=== PATIENT | male | born 1970 | race Caucasian/White ===

== ENCOUNTER 2019-10-07 08:49 | Emergency (ER) | payer OTHER ==
[2019-10-07 08:54] VITALS: BP 121/73
[2019-10-07] MEDS ORDERED: HYDROcodone/ACETAMINOPHEN 5-325 MG TAB PO ONE (10:23)
--- NOTE | 2019-10-07 10:39 | Emergency Department Report ---
Upper Extremity - HPI Chief Complaint: Extremity Injury, Upper Stated Complaint: LT ARM PAIN/COUGHING Time Seen by Provider: 10/07/19 10:11 Upper Extremity: Left Shoulder Occurred When: 3 Days Mechanism: Unsure Severity: moderate Symptoms: Yes Pain with Movement, Yes Limited Range of Movement, No Deformity, No Numbness, No Weakness, No Swelling, No Bruising/Ecchymosis, No Laceration or Abrasion Other History: Is a pleasant 49-year-old male presents the emergency department with a chief complaint of left shoulder pain 3 days. 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 He has been diagnosed with a mass in his lungs which is currently being worked up outpatient and was scheduled for bronchoscopy. He reports the pain in his left shoulder as a 10 out of 10 and rated with any movement. He specifically cannot lift it above 90 without severe pain. The pain radiates from the shoulder to his upper back. He denies any associated chest pain, shortness of breath, nausea, vomiting, diarrhea, fever, chills, night sweats or any other associated symptoms. His current medications include Atrovent, Tessalon Perles Lipitor. He denies any allergies to medications. No previous surgeries. ED Review of Systems ROS: Stated complaint: LT ARM PAIN/COUGHING Other details as noted in HPI Comment: All other systems reviewed and negative Constitutional: denies: chills, fever Eyes: denies: eye pain, eye discharge, vision change ENT: denies: ear pain, throat pain Respiratory: denies: cough, shortness of breath, wheezing Cardiovascular: denies: chest pain, palpitations Endocrine: no symptoms reported Gastrointestinal: denies: abdominal pain, nausea, diarrhea Genitourinary: denies: urgency, dysuria Musculoskeletal: as per HPI, arthralgia. denies: back pain, joint swelling Skin: denies: rash, lesions Neurological: denies: headache, weakness, paresthesias Psychiatric: denies: anxiety, depression Hematological/Lymphatic: denies: easy bleeding, easy bruising ED Past Medical Hx - Past Medical History Previous Medical History?: No - Surgical History Past Surgical History?: Yes Additional Surgical History: eye surgery - Social History Smoking Status: Former Smoker - Medications Home Medications: Home Medications Medication Instructions Recorded Confirmed Last Taken Type Codeine Phosphate/Guaifenesin 10 ml PO Q4HR PRN #90 ml 10/07/19 Unknown Rx [Guaifen-Codeine 200-20 mg/10Ml] methylPREDNISolone [Medrol 4MG 4 mg PO ONCE #1 tab.ds.pk 10/07/19 Unknown Rx DOSEPAK (21 tabs)] Upper Extremity Exam - Exam General: Vital signs noted. No distress. Alert and acting appropriately. Head and Torso: No HEENT Abnormality, No Neck Tenderness, No Chest/Lungs Abnormality, No Abdominal Tenderness, No Back Tenderness Shoulder Exam: Yes Shoulder Tenderness (there is tenderness over the head of the femur. There is pain with any range of motion above 30. There is pain with Hockin sign. Patient was unable to do Apley's maneuver secondary to pain. There is normal distal sensation and capillary refill. Normal radial pulses. Pain with neers test), No Clavicle Tenderness, No Normal Range of Motion in Shoulder, No Shoulder Deformity, No AC Joint Tenderness Arm Exam: No Arm/Humerus Tenderness, No Arm Deformity Elbow: No Elbow Tenderness, No Normal Range of Motion in Elbow, No Elbow Deformity Forearm: No Forearm Tenderness, No Forearm Deformity, No Pain with Pronation, No Pain with Supination Wrist: Yes Normal ROM in Wrist, No Wrist Tenderness, No Wrist Deformity, No Snuffbox Tenderness, No Pain with Axial Thumb Compression Hand: Yes Normal ROM in Digit(s), No Hand Tenderness, No Hand Deformity, No Digit Tenderness, No Digit(s) Deformity, No Tendon Dysfunction CMS Exam: No Broken Skin, No Normal Distal Pulses, No Normal Capillary Refill, No Normal Distal Sensation ED Course Vital Signs 10/07/19 08:53 Temperature 98.4 F Pulse Rate 95 H Respiratory 16 Rate Blood Pressure 121/73 O2 Sat by Pulse 94 Oximetry ED Medical Decision Making - Radiology Data Radiology results: report reviewed, image reviewed XRay Report Signed Patient: CHRISTIANO WILKINSON MR#: [id number] : 1970 Acct:[id number] Age/Sex: 49 / M ADM Date: 10/07/19 Loc: ED Attending Dr: Ordering Physician: DERRELL MCCLURE Date of Service: 10/07/19 Procedure(s): XR shoulder 2+V LT Accession Number(s): [id number] cc: DERRELL MCCLURE Fluoro Time In Minutes: Left shoulder-3 views INDICATION: Generalized left shoulder pain since Friday. COMPARISON: None. IMPRESSION: No acute osseous or soft tissue abnormality. No significant DJD. Signer Name: Gabriele Cope MD Signed: 10/07/2019 11:30 AM Workstation Name: [id number] XRay Report Signed Patient: CHRISTIANO WILKINSON MR#: [id number] : 1970 Acct:[id number] Age/Sex: 49 / M ADM Date: 10/07/19 Loc: ED Attending Dr: Ordering Physician: DERRELL MCCLURE Date of Service: 10/07/19 Procedure(s): XR chest routine 2V Accession Number(s): [id number] cc: DERRELL MCCLURE Fluoro Time In Minutes: CHEST 2 VIEWS INDICATION: pain. Here to evaluate reported chest mass COMPARISON: None FINDINGS: Support devices: None. Heart: Within normal limits. Lungs/pleura: There is a large rounded masslike opacity in the region of the right middle lobe with otherwise clear lungs. No pneumothorax. Additional findings: None. IMPRESSION: 1. Pulmonary findings as above. Recommend follow-up CT chest with contrast. Signer Name: Gabriele Cope MD Signed: 10/07/2019 11:31 AM Workstation Name: [id number] - Medical Decision Making X-ray of the left shoulder was unremarkable. Patient's exam was consistent with impingement syndrome versus rotator cuff arthropathy. The chest x-ray showed a large right-sided mass in the right lung which was known to the patient already. Patient was already being worked up for this with bronchoscopy and PET scan on Friday. He darty had a CT scan of the chest. I offered to do another CAT scan today to the radiologist's recommendation however patient and family declined and preferred to follow up with their doctor. They understood that I could not rule out other emergent processes such as pulmonary embolism without a CAT scan although my suspicion is relatively low with no tachycardia or persistent hypoxia. Patient was given cough medication which will also help his pain and a Medrol pack for inflammation. Recommend orthopedic follow-up. He was instructed to return to the emergency Department immediately if he develops any changing or worsening symptoms. He verbalizes understanding of these instructions and QUESTIONS were answered. - Differential Diagnosis rotator cuff arthropathy, malignancy, fracture, strain Critical care attestation.: If time is entered above; I have spent that time in minutes in the direct care of this critically ill patient, excluding procedure time. ED Disposition Clinical Impression: Rotator cuff impingement syndrome of left shoulder, Lung mass Disposition: TO HOME OR SELFCARE Is pt being admited?: No Condition: Stable Instructions: Rotator Cuff Injury (ED) Prescriptions: Codeine Phosphate/Guaifenesin [Guaifen-Codeine 200-20 mg/10Ml] 10 ml PO Q4HR PRN #90 ml PRN Reason: Cough methylPREDNISolone [Medrol 4MG DOSEPAK (21 tabs)] 4 mg PO ONCE #1 tab.ds.pk Referrals: PRIMARY CARE, [Primary Care Provider] - 3-5 Days NEHA SYLVESTER MD [Staff Physician] - 3-5 Days Forms: Work/School Release Form(ED)
--- NOTE | 2019-10-07 11:35 | XRay Report ---
Left shoulder-3 views INDICATION: Generalized left shoulder pain since Friday. COMPARISON: None. IMPRESSION: No acute osseous or soft tissue abnormality. No significant DJD. Signer Name: Gabriele Cope MD Signed: 10/07/2019 11:30 AM Workstation Name: [id number]
--- NOTE | 2019-10-07 11:36 | XRay Report ---
CHEST 2 VIEWS INDICATION: pain. Here to evaluate reported chest mass COMPARISON: None FINDINGS: Support devices: None. Heart: Within normal limits. Lungs/pleura: There is a large rounded masslike opacity in the region of the right middle lobe with o therwise clear lungs. No pneumothorax. Additional findings: None. IMPRESSION: 1. Pulmonary findings as above. Recommend follow-up CT chest with contrast. Signer Name: Gabriele Cope MD Signed: 10/07/2019 11:31 AM Workstation Name: [id number]
== END 2019-10-07 12:19 | disposition home or self-care (01) ==
LOC: ED 08:49
DX: M75.102 Unspecified rotator cuff tear or rupture of left shoulder, not specified as traumatic (principal); R91.8 Other nonspecific abnormal finding of lung field; Z87.891 Personal history of nicotine dependence; Z98.890 Other specified postprocedural states
CPT/HCPCS: 71046

== ENCOUNTER 2020-05-18 21:53 | Emergency (ER) | payer OTHER ==
[2020-05-19] MEDS ORDERED: ASPIRIN 325 MG TAB PO ONE (00:34)
--- NOTE | 2020-05-19 00:36 | Emergency Department Report ---
ED General Adult HPI - General Chief complaint: Chest Pain Stated complaint: SOB CHEST PAIN CHEST REDNESS PUI?: No Time Seen by Provider: 05/19/20 00:18 Source: patient Mode of arrival: Ambulatory Limitations: Language Barrier - History of Present Illness Initial comments: Patient is a 49-year-old male that presents emergency room with complaints of chest pain, shortness of breath, cough. Patient states his symptoms been going on for 1 week and are worsening. Patient states that he is receiving chemo through his left upper extremity PICC line for stage IV lung cancer at [facility]. Patient states that Friday of this week, the patient had a chest x-ray and was diagnosed with a left-sided pneumonia and placed on antibiotics for 7 days. Patient states the chest pain is a 10 out of 10. Pain states the chest pain is worse with deep breath, movement and exertion. Patient states the chest pain is better with rest. Patient states that shortness of breath is worse with exertion and better with rest. Patient states he is having a dry cough. Patient also complains of a redness to the anterior chest. Patient denies recent travel. Patient denies recent international travel. Patient denies exposure to the novel coronavirus. Patient denies sick contacts. Patient denies fever and chills. Patient denies diarrhea. Patient denies coming in contact with anybody with symptoms of the novel coronavirus. -: Sudden Location: chest Radiation: non-radiation Severity scale (0 -10): 10 Quality: stabbing Consistency: constant Improves with: rest Worsens with: movement, other Associated Symptoms: chest pain, cough, malaise, shortness of breath. denies: confusion, diaphoresis, fever/chills, headaches, loss of appetite, nausea/vomiting, rash, seizure, syncope, weakness Treatments Prior to Arrival: other - Related Data Previous Rx's Medication Instructions Recorded Last Taken Type Codeine Phosphate/Guaifenesin 10 ml PO Q4HR PRN #90 ml 10/07/19 Unknown Rx [Guaifen-Codeine 200-20 mg/10Ml] methylPREDNISolone [Medrol 4MG 4 mg PO ONCE #1 tab.ds.pk 10/07/19 Unknown Rx DOSEPAK (21 tabs)] Allergies Allergy/AdvReac Type Severity Reaction Status Date / Time No Known Allergies Allergy Unverified 01/23/20 08:51 ED Review of Systems ROS: Stated complaint: SOB CHEST PAIN CHEST REDNESS Other details as noted in HPI Constitutional: malaise. denies: chills, fever Eyes: denies: eye pain, eye discharge, vision change ENT: denies: ear pain, throat pain Respiratory: cough, shortness of breath. denies: wheezing Cardiovascular: chest pain. denies: palpitations Endocrine: no symptoms reported Gastrointestinal: denies: abdominal pain, nausea, diarrhea Genitourinary: denies: urgency, dysuria Musculoskeletal: denies: back pain, joint swelling, arthralgia Skin: denies: rash, lesions Neurological: denies: headache, weakness, paresthesias Psychiatric: denies: anxiety, depression Hematological/Lymphatic: denies: easy bleeding, easy bruising ED Past Medical Hx - Past Medical History Previous Medical History?: Yes Additional medical history: Stage 4 lung cancer, Chemo - Surgical History Past Surgical History?: Yes Additional Surgical History: eye surgery - Family History Family history: no significant - Social History Smoking Status: Former Smoker Substance Use Type: None - Medications Home Medications: Home Medications Medication Instructions Recorded Confirmed Last Taken Type Codeine Phosphate/Guaifenesin 10 ml PO Q4HR PRN #90 ml 10/07/19 Unknown Rx [Guaifen-Codeine 200-20 mg/10Ml] methylPREDNISolone [Medrol 4MG 4 mg PO ONCE #1 tab.ds.pk 10/07/19 Unknown Rx DOSEPAK (21 tabs)] ED Physical Exam - General Limitations: Language Barrier General appearance: alert, in no apparent distress - Head Head exam: Present: atraumatic, normocephalic - Eye Eye exam: Present: normal appearance - ENT ENT exam: Present: mucous membranes moist - Neck Neck exam: Present: normal inspection - Respiratory Respiratory exam: Present: normal lung sounds bilaterally, chest wall tenderne ss. Absent: respiratory distress - Cardiovascular Cardiovascular Exam: Present: regular rate, normal rhythm. Absent: systolic murmur, diastolic murmur, rubs, gallop - GI/Abdominal GI/Abdominal exam: Present: soft, normal bowel sounds - Rectal Rectal exam: Present: deferred - Extremities Exam Extremities exam: Present: normal inspection - Back Exam Back exam: Present: normal inspection - Neurological Exam Neurological exam: Present: alert, oriented X3 - Psychiatric Psychiatric exam: Present: normal affect, normal mood - Skin Skin exam: Present: warm, dry, intact, normal color. Absent: rash ED Course Vital Signs 05/18/20 05/18/20 05/19/20 22:33 23:53 00:00 Temperature 98.5 F Pulse Rate 116 H 119 H Respiratory 20 13 Rate Blood Pressure 126/79 109/77 O2 Sat by Pulse 91 91 91 Oximetry 05/19/20 05/19/20 05/19/20 00:15 00:30 00:45 Temperature Pulse Rate 107 H 109 H 102 H Respiratory 23 18 17 Rate Blood Pressure 115/76 111/78 122/71 O2 Sat by Pulse 91 92 93 Oximetry 05/19/20 05/19/20 05/19/20 01:00 01:15 01:30 Temperature Pulse Rate 116 H 104 H 126 H Respiratory 19 25 H 13 Rate Blood Pressure 122/71 117/84 133/81 O2 Sat by Pulse 91 91 Oximetry 05/19/20 05/19/20 05/19/20 01:45 02:00 02:16 Temperature Pulse Rate 115 H 112 H 111 H Respiratory 30 H 22 31 H Rate Blood Pressure 109/75 113/76 117/88 O2 Sat by Pulse 91 90 92 Oximetry 05/19/20 05/19/20 05/19/20 02:30 03:02 04:00 Temperature Pulse Rate 116 H 115 H 111 H Respiratory 20 15 18 Rate Blood Pressure 117/84 117/88 O2 Sat by Pulse 96 98 97 Oximetry 05/19/20 05:00 Temperature Pulse Rate 105 H Respiratory 21 Rate Blood Pressure 117/88 O2 Sat by Pulse 98 Oximetry - Reevaluation(s) Reevaluation #1: Patient's oxygen saturation has improved with O2. 05/19/20 00:54 Reevaluation #2: Patient states his shortness of breath will be better with oxygen. 05/19/20 01:54 Reevaluation #3: I discussed all results and clinical findings with patient. I discussed plan of care with patient. Patient agrees with plan of care. Patient is stable for transfer. Patient will be transferred to [place]. 05/19/20 03:51 - Consultations Consultation #1: [place] transfer center consulted. 05/19/20 03:51 Patient has been accepted by [facility]. Patient will be transferred ER to ER. The accepting physician is Dr. Brown. 05/19/20 04:27 ED Medical Decision Making - Lab Data Result diagrams: 05/19/20 02:30 05/19/20 01:30 - EKG Data -: EKG Interpreted by Me EKG shows normal: sinus rhythm, axis, intervals, QRS complexes, ST-T waves Rate: tachycardia - Radiology Data Radiology results: report reviewed, image reviewed interpreted by me: Chest x-ray: Complete whiteout of the right hemithorax. Pneumonia of the left lung. No pneumothorax noted. No rib fractures. No foreign body. CHEST 1 VIEW INDICATION: Chest Pain. COMPARISON: 10/23/2019. FINDINGS: Support devices: None. Heart: Stable cardiomegaly. Lungs/Pleura: Near complete opacification right hemithorax. Mild increased interstitial markings left chest. No localized infiltrate. Additional findings: None. IMPRESSION: 1. Near complete opacification right hemithorax. 2. Mild increased interstitial markings left chest diffusely. . . . CT angio chest INDICATION / CLINICAL INFORMATION: P.E. PROTOCOL!!! S.O.B., Hypoxia and Chest Pain. TECHNIQUE: Axial CT images were obtained after injection of Omnipaque 300, 100 cc IV contrast using CTA protocol. 3 plane MIP / 3D reconstructions were produced. All CT scans at this location are performed using CT dose reduction for ALARA by means of automated exposure control. COMPARISON: CT chest 10/24/2019. FINDINGS: Near complete dense opacification of the right chest with mild residual aeration at the right base which contains nodular infiltrate. Small nodules are now scattered within the left chest. No left- sided infiltrate. A right-sided effusion is small. Increasing right axillary, internal mammary and mediastinal adenopathy. A support representative godfrey mass at the prevascular space now measures 4.6 x 3.4 cm. Several small nodes were seen in this region previously. A large pericardial effusion has developed. Imaging of the upper abdomen demonstrates a few small retroperitoneal nodes. Negative for aneurysm, dissection or pulmonary embolus. IMPRESSION: 1. Worsening opacification at the right chest. A small amount of residual aerated lung contains diffuse nodularity typical of tumor. 2. Development of large pericardial effusion with maximal thickness of approximately 4 cm. 3. Increasing nodularity left chest. 4. Increasing mediastinal, right axillary, retroperitoneal and internal mammary adenopathy. - Medical Decision Making Patient is a 49-year-old male that presents emergency room with complaints of chest pain, shortness of breath, cough. Patient has a history of stage IV lung cancer. Patient also found to be hypoxic on initial evaluation. Patient placed on oxygen and his oxygenation improved. Patient had a chest x-ray which shows a jess out right hemithorax. Patient had a CTA since the patient was having tachycardia, shortness of breath, chest pain and hypoxia. Patient's CTA has multiple abnormalities. Patient CTA shows a large pericardial effusion, multiple nodular changes to the lungs, pneumonia. Patient given fluids, antibiotics, pain meds and Zofran in the ER. Patient's pain improved with treatment. Patient has an oncologist at [place]. I discussed at length the patient's case and past medical histories and history of present illness with [facility]. Patient was accepted by an ER attending at [facility] to be transferred ER to ER. - Differential Diagnosis Shortness of breath, chest pain, hypoxia, PE, pneumonia, chemotherapy rxn. Critical Care Time: Yes Critical care time in (mins) excluding proc time.: 80 Critical care attestation.: If time is entered above; I have spent that time in minutes in the direct care of this critically ill patient, excluding procedure time. Critical Care Time: 80 minutes ED Disposition Clinical Impression: Hypoxia, SOB (shortness of breath), HARRIS (dyspnea on exertion), Pericardial effusion Chest pain Qualifiers: Chest pain type: unspecified Qualified Code(s): R07.9 - Chest pain, unspecified Lung cancer Qualifiers: Laterality: unspecified laterality Lung location: unspecified part of lung Qualified Code(s): C34.90 - Malignant neoplasm of unspecified part of unspecified bronchus or lung Pneumonia Qualifiers: Pneumonia type: due to unspecified organism Laterality: unspecified laterality Lung location: unspecified part of lung Qualified Code(s): J18.9 - Pneumonia, unspecified organism Disposition: DC/TX-05 [facility]ILD [facility]P Is pt being admited?: No Does the pt Need Aspirin: No Condition: Critical Time of Disposition: 04:27
--- NOTE | 2020-05-19 00:58 | XRay Report ---
CHEST 1 VIEW INDICATION: Chest Pain. COMPARISON: 10/23/2019. FINDINGS: Support devices: None. Heart: Stable cardiomegaly. Lungs/Pleura: Near complete opacification right hemithorax. Mild increased interstitial markings left chest. No localized infiltrate. Additional findings: None. IMPRESSION: 1. Near complete opacification right hemithorax. 2. Mild increased interstitial markings left chest diffusely. Signer Name: Raymundo Kevin MD Signed: 05/19/2020 12:54 AM Workstation Name: [id number]
[2020-05-19 02:25] LABS: Alanine Aminotransferase 29 units/L (7-56); Albumin 3.2 g/dL (3.9-5); Blood Urea Nitrogen 4 mg/dL (9-20); Calcium 9.6 mg/dL (8.4-10.2); Hemolysis Index 0
[2020-05-19 02:30] LABS: BUN/Creatinine Ratio 8
[2020-05-19 02:46] LABS: Basophils # (Auto) 0.1 K/mm3 (0.0-0.1); Basophils % (Auto) 0.9 % (0.0-1.8); Eosinophils # (Auto) 0.3 K/mm3 (0.0-0.4); Eosinophils % (Auto) 1.9 % (0.0-4.3); Hematocrit 27.7 % (35.5-45.6); Hemoglobin 9.9 gm/dl (11.8-15.2); Lymphocytes # (Auto) 1.3 K/mm3 (1.2-5.4); Lymphocytes % (Auto) 9.6 % (13.4-35.0); Mean Corpuscular HGB Conc 36 % (32-34); Mean Corpuscular Volume 83 fl (84-94); Monocytes # (Auto) 1.9 K/mm3 (0.0-0.8); Monocytes % (Auto) 14.3 % (0.0-7.3); Platelet Count 481 K/mm3 (140-440); Red Blood Count 3.35 M/mm3 (3.65-5.03)
[2020-05-19 03:24] LABS: Bilirubin,Urine NEG (Negative); Blood,Urine NEG (Negative); Color,Urine Straw (Yellow); Protein,Urine <15 mg/dL mg/dL (Negative); Urobilinogen,Urine < 2.0 mg/dL (<2.0); WBC,Urine < 1.0 /HPF (0.0-6.0)
--- NOTE | 2020-05-19 03:33 | Cat Scan Report ---
CT angio chest INDICATION / CLINICAL INFORMATION: P.E. PROTOCOL!!! S.O.B., Hypoxia and Chest Pain. TECHNIQUE: Axial CT images were obtained after injection of Omnipaque 300, 100 cc IV contrast using CTA protocol . 3 plane MIP / 3D reconstructions were produced. All CT scans at this location are performed using C T dose reduction for ALARA by means of automated exposure control. COMPARISON: CT chest 10/24/2019. FINDINGS: Near complete dense opacification of the right chest with mild residual aeration at the right base wh ich contains nodular infiltrate. Small nodules are now scattered within the left chest. No left-sided infiltrate. A right-sided effusion is small. Increasing right axillary, internal mammary and mediastinal adenopathy. A u.s. representative godfrey mass a t the prevascular space now measures 4.6 x 3.4 cm. Several small nodes were seen in this region previ ously. A large pericardial effusion has developed. Imaging of the upper abdomen demonstrates a few sm all retroperitoneal nodes. Negative for aneurysm, dissection or pulmonary embolus. IMPRESSION: 1. Worsening opacification at the right chest. A small amount of residual aerated lung contains diffu se nodularity typical of tumor. 2. Development of large pericardial effusion with maximal thickness of approximately 4 cm. 3. Increasing nodularity left chest. 4. Increasing mediastinal, right axillary, retroperitoneal and internal mammary adenopathy. Signer Name: Raymundo Kevin MD Signed: 05/19/2020 3:28 AM Workstation Name: [id number]
[2020-05-19] MEDS ORDERED: CEFEPIME/NS 2 GM/100 ML 2 GM/100 ML BAG IV ONE (03:50)
[2020-05-19] MEDS ORDERED: ONDANSETRON 4 MG/2 ML INJ ONE (03:59)
[2020-05-19] MEDS ORDERED: HYDROmorphone 1 MG/1 ML INJ ONE (03:59)
[2020-05-19] MEDS ORDERED: ONDANSETRON 4 MG/2 ML INJ IV ONE (04:07)
[2020-05-19] MEDS ORDERED: HYDROmorphone 1 MG/1 ML INJ IV ONE (04:07)
[2020-05-19 04:08] VITALS: BP 117/88
== END 2020-05-19 05:58 | disposition designated cancer center or children's hospital (05) ==
LOC: ED 21:53
DX: C34.90 Malignant neoplasm of unspecified part of unspecified bronchus or lung (principal); I31.3 Pericardial effusion (noninflammatory); J18.9 Pneumonia, unspecified organism; R09.02 Hypoxemia; R06.02 Shortness of breath; R06.00 Dyspnea, unspecified; Z98.890 Other specified postprocedural states; Z87.891 Personal history of nicotine dependence; Z79.899 Other long term (current) drug therapy
CPT/HCPCS: 36415; 71045; 71275; 80053; 81001; 84484; 85025; 93005; 96365; 96375; 99291; 99292; J0692; J1170; J2405; Q9967